=== PATIENT | male | born 1995 | race Caucasian/White ===

== ENCOUNTER 2018-01-23 09:43 | Emergency (ER) | payer MEDICAID, OTHER ==
--- NOTE | 2018-01-23 11:01 | EDM.PDOC ---
ED HPI GENERAL MEDICAL PROBLEM - General Chief Complaint: Lower Extremity Injury/Pain Stated Complaint: LEFT KNEE Time Seen by Provider: 01/23/18 10:00 Source of Information: Reports: Patient History Limitations: Reports: No Limitations - History of Present Illness INITIAL COMMENTS - FREE TEXT/NARRATIVE: c/o L knee pain played football in past, no prior fx's, has had pain from time to time, no locking, not fallen thinks L patella subluxes, sometimes laterally, today it felt like it was vertically, does have a J knee brace which he is wearing no localized tender or swell now "does not feel right" XR is neg for fx or DJD left knee Pain Score (Numeric/FACES): 1 - Related Data Allergies Allergy/AdvReac Type Severity Reaction Status Date / Time No Known Allergies Allergy Verified 01/23/18 09:55 Home Meds: Home Meds NK [No Known Home Meds] 01/05/16 [History] Past Medical History - Past Health History Medical/Surgical History: Denies Medical/Surgical History Other Musculoskeletal History: dislocated left knee Psychiatric History: Reports: Depression, Suicidal Ideation Social & Family History - Family History Family Medical History: Noncontributory - Tobacco Use Smoking Status *Q: Current Every Day Smoker Years of Tobacco use: 1 Packs/Tins Daily: 0.1 Second Hand Smoke Exposure: Yes - Caffeine Use Caffeine Use: Reports: Soda - Recreational Drug Use Recreational Drug Use: No Drug Use in Last 12 Months: Yes Recreational Drug Type: Reports: Marijuana/Hashish Recreational Drug Use Frequency: Weekly - Living Situation & Occupation Living situation: Reports: Single, with Significant Other, Alone Occupation: Employed Review of Systems - Review of Systems Review Of Systems: See Below Constitutional: Reports: No Symptoms Eyes: Reports: No Symptoms Ears: Reports: No Symptoms Nose: Reports: No Symptoms Mouth/Throat: Reports: No Symptoms Respiratory: Reports: No Symptoms Cardiovascular: Reports: No Symptoms GI/Abdominal: Reports: No Symptoms Genitourinary: Reports: No Symptoms Musculoskeletal: Reports: Other (L patella subluxation and pain) Skin: Reports: No Symptoms Neurological: Reports: No Symptoms Psychiatric: Reports: No Symptoms ED EXAM, GENERAL - Physical Exam Exam: See Below Exam Limited By: No Limitations General Appearance: Alert, WD/WN, No Apparent Distress Extremities: Other (stands, walks and does deep knee bend without difficulty, no swell L knee, no PT, medial facet NT, thighs very muscular, yet 90 degrees SLR b/l) Course - Vital Signs Last Recorded V/S: Last Vital Signs Temp 36.6 C 01/23/18 09:45 Pulse 79 01/23/18 09:45 Resp 15 01/23/18 09:45 BP 130/78 01/23/18 09:45 Pulse Ox 97 01/23/18 09:45 - Orders/Labs/Meds Orders: Active Orders 24 hr Category Date Time Status Knee Min 4V Lt [CR] Stat Exams 01/23/18 10:20 Ordered - Re-Assessments/Exams Free Text/Narrative Re-Assessment/Exam: 01/23/18 10:59 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 Since you have good flexibility of hamstring, strengthening the quadriceps muscle can be a very helpful next step. Do a knee curl from 45 degrees to 0 degrees, 25 reps daily. Increase the weight around the ankle daily by 5 pounds per week. In most cases symptoms will resolve in one month. Use the knee brace for 1 week, longer if needed. Take naprosyn (Aleve) 2 tabs twice a day or ibuprofen 200 mg 4 tabs 3 times a day for 1 week, longer if needed. Use one or the other, not both. May use ice for 10 minutes in the evening as needed. See an orthopedic surgeon in 2-3 weeks. - My Orders Last 24 Hours: My Active Orders 01/23/18 10:20 Knee Min 4V Lt [CR] Stat - Assessment/Plan Last 24 Hours: My Active Orders 01/23/18 10:20 Knee Min 4V Lt [CR] Stat
[2018-01-23 11:12] VITALS: BP 118/66
--- NOTE | 2018-01-23 15:27 | CR ---
INDICATION: Complaints of left patellar pain, feels like it is . LEFT KNEE: Four views of the left knee were obtained, including a tunnel view, AP, lateral, and patellar sunrise views. No significant appearing bone or joint abnormality was identified. Joint spaces appear to be fairly well maintained. If soft tissue abnormality is suspected clinically, MRI is recommended for further evaluation. MTDD
== END 2018-01-23 11:12 | disposition home or self-care (01) ==
LOC: FB.ED 09:43
DX: M23.52 Chronic instability of knee, left knee (principal); F17.210 Nicotine dependence, cigarettes, uncomplicated
CPT/HCPCS: 73564-LT; 99283

== ENCOUNTER 2018-03-10 08:13 | Emergency (ER) | payer MEDICAID, OTHER ==
[2018-03-10 10:43] VITALS: BP 140/99
--- NOTE | 2018-03-10 11:00 | CT ---
INDICATION: Two weeks left-sided dysesthesia, left arm, leg, and face numbness. CT HEAD WITHOUT CONTRAST: Serial contiguous 2.5 and 5-mm sections were obtained through the brain 03/10/2018 - no comparisons. Total Exam DLP = 950.31 mGy-cm. Visualized paranasal sinuses and mastoid air cells appear well aerated. The cranium appears to be intact. No shift of midline structures, ventricular abnormalities, or abnormal areas of density were identified. IMPRESSION: Normal CT brain without contrast. Report was called to Dr. Tuttle at 0934 hours, 03/10/2018. [facility]
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
--- NOTE | 2018-03-11 12:37 | ER ---
DATE SEEN: 03/10/2018 ADDENDUM: The patient's CAT scan results, he has more bladder thickening than normal. Increased ureter dilation, greater on the left than right, and pyelocaliceal dilation, mild to moderate, and more on the left than right, and prostate is enlarged. ASSESSMENT: 1. No evidence for recurrence of Hodgkin lymphoma. 2. Probable prostatism with resultant mild hydroureter and mild pyelocaliectasis on the left side greater than right. 3. His symptoms for flank discomfort probably related to his prostatism. PLAN: The patient needs to follow up with the urologist and follow his prostate, perhaps finasteride or other medicines might be helpful in the patient's prostatism. /[id number] SHANNON/BASHIR
== END 2018-03-10 10:04 | disposition home or self-care (01) ==
LOC: FB.ED 08:13
DX: S83.002A Unspecified subluxation of left patella, initial encounter (principal); R61 Generalized hyperhidrosis; I10 Essential (primary) hypertension; E66.9 Obesity, unspecified; Z68.21 Body mass index [BMI] 21.0-21.9, adult; X58.XXXA Exposure to other specified factors, initial encounter
CPT/HCPCS: 36415; 70450; 80053; 80305; 81001; 84443; 85025; 99283; G0480